=== PATIENT | female | born 1980 | race Caucasian/White ===

== ENCOUNTER 2022-04-03 07:09 | Emergency (ER) | payer BC ==
--- OUTSIDE RECORDS SUMMARY | 2022-04-03 07:12 | XMS REPORT | Continuity of Care Document ---
:1980 Author Organization [facility] t Address [address] [place] [address] Care Team Providers Name Role Phone Keith Chahal MD Primary Care Physician [phone] BIENVENIDO_CHYNA_Estevan Attending Clinician Unavailable Blanca Johnson Attending Clinician [phone] Keith Chahal MD Attending Clinician [phone] RASHEL ROMERO Attending Clinician Unavailable Amina De Souza Attending Clinician Unavailable MD RASHEL ROMERO Attending Clinician Unavailable Marlene Admitting Clinician Unavailable RSAHEL ROMERO Admitting Clinician Unavailable MD RASHEL ROMERO Admitting Clinician Unavailable Payers Payer Name Policy Type Policy Number Effective Date Expiration Date S ource [place] [id number] 2019 00:00:00 [place] 1707 [place] [id number] Problems Condition Condition Condition Status Onset Resolution Last Treating Co mments Source Name Details Category Date Date Treatment Clinician Date 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 of 00:00: Ho spita skin of skin of 00 l face face 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 00:00: Ho spita 00 l Attention Attention Disease Active Met hodi deficit deficit 3-12 st disorder disorder 00:00: Hospit a 00 l Depression Depression Disease Active M ethodi 3-22 st 00:00: Hospita 00 l Allergies, Adverse Reactions, Alerts Allergy Allergy Status Severity Reaction(s) Onset Inactive Treating Comm ents Source Name Type Date Date Clinician No Known Propensi Active Method i Drug ty to 03 st Allergie adverse 00:00: Hospita s reaction 00 l s to drug Family History Family Member Diagnosis Comments Start Date Stop Date Source Natural father [facility] Natural mother [facility] Social History Social Habit Start Date Stop Date Quantity Comments Source Alcohol intake 2021-11-11 2021-11-11 Current drinker [facility] 00:00:00 00:00:00 of alcohol Hospital (finding) Tobacco use and 2019-12-28 2019-12-28 Smokeless tobacco [facility] exposure 00:00:00 00:00:00 non-user Hospital Alcohol Comment 2019-12-28 2019-12-28 Not much. Maybe [facility]ist 00:00:00 00:00:00 once a month Hospital Sex Assigned At [birth year] F [facility] 00:[facility]00 [facility] Smoking Status Start Date Stop Date Source Never smoked tobacco [facility] Medications Ordered Filled Start Stop Current Ordering Indication Dosage Frequency Signature Comments Components Source Medication Medication Date Date Medication? Clinician (SIG) Name Name etonogestre Yes NuvaRing Me thodi l-ethinyl -[address] estradiol 13:07: -0.015 Hospit a (NUVARING) 30 mg/24 hr l 0.12-0.015 vaginal mg/24 hr vaginal ring cholecalcif Yes Take by Met hodi lola, 4-[address] vitamin D3, 13:07: Hospit a (VITAMIN 30 l D3) 5,000 unit capsule iron, Yes 45mg QD Take 45 mg Method i carbonyl, 4-[address] 45 mg 13:07: daily. 2 Hospita tablet 30 QOD alt l with 1 QOD ascorbic Yes 1000mg QD Take 1,000 M ethodi acid, 4-[address] vitamin C, 13:07: mouth Hospit a (VITAMIN C) 30 daily. l 1000 MG tablet fluticasone 2019-08 Yes 1{puff} Q.5D Inhale 1 Methodi propion-branden 0-[address] meteroL 00:00: (two) Hospita (Advair 00 times a l Diskus) day. 250-50 mcg/dose DISKUS nebulizers Yes Q.25D 1 Method i misc 3-[address] 00:00: s 4 (four) Hospita 00 times a l day as needed (wheezing) . albuterol 2018-08 Yes 2{puff} Q.25D Inhale 2 Methodi sulfate 90 0-[address] mcg/actuati 00:00: (four) Hosp latanya on aerosol 00 times a l powdr day as breath needed activated (cough, wheezing or shortness of breath). VYVANSE 50 Yes 50mg QD Take 50 mg M ethodi mg capsule 9-[address] 00:00: daily. Hospita 00 l dextroamphe Yes 1{tbl} QD Take 1 Me thodi tamine-amph 9-[address] etamine 00:00: mouth Hospita (ADDERALL) 00 every l 20 mg evening. tablet sertraline Yes Methodi (ZOLOFT) 7-08 st 100 MG 00:00: Hospita tablet 00 l Immunizations Ordered Immunization Filled Immunization Date Status Commen ts Source Name Name [employer] COVID-19 2021-03-11 Completed Methodis t AD26 VACCINATION 00:00:00 Hospital Influenza, 2020-04-02 Completed [facility] Unspecified 00:00:00 Hospital FLUBLOK QUAD PF 2019-05-16 Completed [facility] 00:00:00 Hospital FLUZONE QUAD 2019-05-16 Completed [facility] 00:[facility]:00 Hospital Tdap 2017-04-19 Completed [facility] 00:[facility]:00 [facility] Influenza (IM) 2014-06-27 Completed [facility] Preservative Free 00:00:00 Hospita l H1N1 All Forms 2009-07-01 Completed [facility] 00:00:00 [facility] H1N1 All Forms 2009-07-01 Completed [facility] 00:[facility] Hospital Vital Signs Vital Name Observation Time Observation Value Comments Source Systolic blood 2021-11-11 18:05:00 119 mm[Hg] [facility] Hospital pressure Diastolic blood 2021-11-11 18:05:00 83 mm[Hg] [facility] pressure Heart rate 2021-11-11 18:05:00 83 /min [facility] Respiratory rate 2021-11-11 18:05:00 15 /min [facility] Body height 2021-11-11 18:05:00 162.6 cm [facility] Body weight 2021-11-11 18:05:00 76.658 kg [facility] BMI 2021-11-11 18:05:00 29.01 kg/m2 [facility] Procedures Procedure Date / Time Performing Clinician Source Performed HEMOGLOBIN A1C 2021-11-11 18:30:00 [facility] LIPID [facility]EL 2021-11-11 18:30:00 Tirso [facility] URINALYSIS, COMPLETE, 2021-11-11 18:30:00 Tirso [facility] WITH REFLEX TO CULTURE SARS-COV-2 ANTIBODY IGG, 2021-11-11 18:30:00 Tirso [facility] SPIKE, SEMI-QUANTITATIVE THYROID STIMULATING 2021-11-11 18:30:00 [facility] HORMONE VITAMIN B12 LEVEL 2021-11-11 18:30:00 [facility] D 25 HYDROXY 2021-11-11 18:30:00 Tirso [facility] LEVEL CBC WITH PLATELET AND 2021-11-11 18:30:00 [facility] DIFFERENTIAL COMPREHENSIVE METABOLIC 2021-11-11 18:30:00 Tirso [facility] PANEL Plan of Care Planned Activity Planned Date Details Comments Source Future Scheduled 2022-03-31 HEPATITIS B [facility] ospital Test 07:13:38 VACCINES (1 of 3 - 3-dose series) [code = HEPATITIS B VACCINES (1 of 3 - 3-dose series)] Future Scheduled 2022-03-31 Screening for [facility] Test 07:13:38 malignant neoplasm of cervix (procedure) [code = 042128603] Future Scheduled 2022-03-31 COVID-19 VACCINE (2 [facility] Test 07:13:38 - Booster for Julia series) [code = COVID-19 VACCINE (2 - Booster for Julia series)] Future Scheduled 2022-03-31 INFLUENZA VACCINE [facility] Test 07:13:38 [code = INFLUENZA VACCINE] Encounters Start End Encounter Admission Attending Care Care Encounter Source Date/Time Date/Time Type Type Clinicians Facility Department ID 2022-03-16 2022-03-16 Outpatient GC_SWOBGYN_ PRIV PRIV [id number] [facility] 00:00:00 00:00:00 Estevan [id number] [facility] 2022-03-16 2022-03-16 Outpatient Johnson, PRIV PRIV [id number] 00:00:00 00:00:00 Blanca [id number] 2022-03-13 2022-03-13 Outpatient GC_SWOBGYN_ PRIV PRIV [id number] [facility] 00:00:00 00:00:00 Estevan [id number] [facility] 2021-11-11 2021-11-11 Office Tirso 1.2.840.1 [id number] Methodi 13:00:00 13:37:55 Visit Keith [id number] P. 3.430.2.7 Hospit a .3.093486 l .8 2021-11-11 2021-11-11 Outpatient [facility] [id number] 587 [place] 00:00:00 00:00:[address] 2021-11-11 2021-11-11 Outpatient [facility] [id number] 164 [place] 00:00:00 00:00:00 RASHEL [address] 2021-11-11 2021-11-11 Travel 1.2.840.1 [id number] Methodi 00:00:00 00:00:[address] 3.430.2.7 0.2.7.3.698 Ho spita .3.834331 084.8 l .8 2021-10-30 2021-10-30 Travel 1.2.840.1 1.2.759.580 [id number] Methodi 00:00:00 00:00:[address] 3.430.2.7 0.2.7.3.698 Ho spita .3.085977 084.8 l .8 2021-05-27 2021-05-27 Outpatient KLEBUC, [facility] [id number] 787 [place] 00:00:00 00:00:00 RASHEL [address] 2021-05-16 2021-05-16 Travel 1.2.840.1 [id number] [id number] [facility]i 00:00:00 00:00:[address] 3.430.2.7 0.2.7.3.698 Ho spita .3.816939 084.8 l .8 2021-03-13 2021-03-13 Outpatient Nolvia Aminahamlet CLEMENTE [id number] [facility] 09:44:00 09:44:00 st LIANG 2021-02-18 2021-02-18 Outpatient KLEBUC, [facility] [id number] [place] 00:00:00 00:00:00 RASHEL [address] 2021-02-14 2021-02-14 [facility] [id number] 548 [place] 00:00:00 00:00:00 RASHEL [address] 2021-02-14 2021-02-14 [facility] [place] [id number] 579 [place] 00:00:00 00:00:00 RASHEL [address] 2021-02-14 2021-02-14 Outpatient KLEBUC, [facility] [id number] 596 [place] 00:00:00 00:00:00 RASHEL [address] 2020-11-29 2020-11-29 Outpatient KLEBU, [facility] [id number] 471 [place] 00:00:00 00:00:00 RASHEL [address] 2020-08-13 2020-08-13 Outpatient [facility] [id number] 323 [place] 00:00:00 00:00:[address] 2020-05-24 2020-05-24 Outpatient KLEBUC, [facility] [id number] 765 [place] 00:00:00 00:00:00 RASHEL [address] 2020-02-14 2020-02-14 Outpatient De SouzaAmina [id number] 09:46:00 09:46:00 st OBGYN 2020-02-13 2020-02-13 Outpatient KLEBUC, [facility] [id number] 265 [place] 00:00:00 00:00:00 RASHEL [address] 2020-02-07 2020-02-07 Outpatient ROBBEN, [facility] [id number] 168 [place] 00:00:00 00:00:00 CHRISTOPHER 101 Me thodi 2020-01-08 2020-01-08 Outpatient KLEBUC, [facility] [id number] 553 [place] 00:00:00 00:00:00 RASHEL [address] 2020-01-03 2020-01-03 Outpatient KLEBUC, [place] [id number] 515 [place] 00:00:00 00:00:00 RASHEL [address] 2019-12-29 2019-12-29 Outpatient KLEBUC, [facility] [id number] 537 [place] 00:00:00 00:00:00 RASHEL [address] 2019-12-29 2019-12-29 Outpatient ROBBEN, [facility] [id number] 237 [place] 00:00:00 00:00:00 CHRISTOPHER 444 Me thodi 2019-12-29 2019-12-29 Outpatient KLEBUC, [facility] [id number] 785 [place] 00:00:00 00:00:00 RASHEL [address] 2019-12-05 2019-12-05 Outpatient KLEBUC, [facility] [id number] 907 [place] 00:00:00 00:00:00 RASHEL [address] 2019-11-02 2019-11-02 Outpatient De SouzaAmina [id number] [facility] 09:23:00 09:23:00 st OBGYN 2019-07-17 2019-07-17 Outpatient ROBBEN, [facility] [id number] 179 [place] 00:00:00 00:00:00 CHRISTOPHER 447 Me thodi 2019-07-17 2019-07-17 Outpatient ROBBEN, [facility] [id number] 096 [place] 00:00:00 00:00:00 ÁNGELVICKIE 670 Me thodi 2018-11-03 2018-11-03 Outpatient Amina De Souza CHYNA [id number] [facility] 10:13:00 10:13:00 CHANTALLILLYMyranda Results Test Description Test Time Test Comments Results Result Comments Source Comprehensive metabolic panel 2021-11-13 09:18:00 Test Item Value Reference Range Interpretation Comme nts Glucose (test code = 89 mg/dL 65-139 Non-fa sting reference 2345-7) interval BUN (test code = 3094-0) 17 mg/dL 7-25 Creatinine (test code = 0.98 mg/dL 0.5-1.1 2160-0) EGFR Non-Afr. Guyanese See_Comment [Aut omated message] (test code = 2775) The [employer] which generated this result transmitted ref erence range: > OR = 6 0 mL/min/1.73m2. The reference range was not used to int erpret this result as normal/abnormal . EGFR See_Comment [Auto mated message] (test code = 2774) The [employer] which generated this result transmitted ref erence range: > OR = 6 0 mL/min/1.73m2. The reference range was not used to int erpret this result as normal/abnormal . BUN/creatinine ratio (test NOT APPLICABLE See_Comment [Automated message] code = 3097-3) The system [employer] ich generated this result transmitted ref erence range: 6 - 22 ( calc). The reference r sammi was not used to interpret this result as normal/abnor mal. Sodium (test code = 137 mmol/L 590-231 4102-2) Potassium (test code = 4.1 mmol/L 3.5-5.3 2823-3) Chloride (test code = 99 mmol/L 98-110 2075-0) CO2 (test code = 2027-9) 29 mmol/L 20-32 Calcium (test code = 10.5 mg/dL 8.6-10.2 H 75943-2) Protein (test code = 7.2 g/dL 6.1-8.1 2885-2) Albumin, S (test code = 4.7 g/dL 3.6-5.1 1751-7) Globulin, total (test code See_Comment [Automated message] = 11639-3) The system whic h generated this result transmitted ref erence range: 1.9 - 3. 7 g/dL (calc). The ref erence range was not u sed to interpret this result as normal/abnor mal. Albumin/globulin ratio See_Comment [Aut omated message] (test code = 1759-0) The sys tem which generated this result transmitted ref erence range: 1.0 - 2. 5 (calc). The ref erence range was not u sed to interpret this result as normal/abnor mal. Total bilirubin (test code 0.4 mg/dL 0.2-1.2 = 1974-) Alkaline phosphatase (test 55 U/L 31-125 code = 6768-6) AST (test code = 1920-8) 14 U/L 10-30 ALT (test code = 1742-6) 9 U/L 6-29 RINA (test code = RINA) FASTING:NO FASTING: NO RAC (test code = RAC) Performing Organization Information: Site ID: RGA [facility]: [facility] Address: [address] [place] [phone] Director: David Owens Lab Interpretation (test Abnormal code = 21500-0) [facility] [id number] 09:18:00 Test Item Value Reference Range Interpretation Comments Cholesterol, total 215 mg/dL See_Comment H [Automat ed (test code = 2093-3) message ] The system which generated this result transmitted reference range : <=200. The reference range was not used to interpret this result as normal/abnormal . HDL cholesterol 74 mg/dL See_Comment [Automated (test code = 2085-9) message ] The system which generated this result transmitted reference range : > OR = 50. The reference range was not used to interpret this result as normal/abnormal . Triglycerides (test 97 mg/dL See_Comment [Automa rojas code = 2571-8) message] The system which generated this result transmitted reference range : <=150. The reference range was not used to interpret this result as normal/abnormal . LDL cholesterol mg/dL (calc) H Reference ra nge: calculated (test <100 Desira ble code = 75233-1) range <100 m g/dL for primary prevention; <70 mg/dL for patients with C HD or diabetic patients with > or = 2 CHD risk factors. LDL-C is now calculated using the Adelia calculation, which is a validated novel method providin g better accuracy than the Friedewald equation in the estimation of LDL-C. Donta Fernandez S et al. VICTOR M. 2013;310(19): 1581-0481 (http://educati on .CodeStreet .com/faq/PGG463 ) Cholesterol/HDL See_Comment [Automated ratio (test code = message] The 9830-1) system which generated this result transmitted reference range : <5.0 (calc). Th e reference range was not used to interpret this result as normal/abnormal . Non-HDL cholesterol See_Comment H For cassie ents with (test code = diabetes plus 1 96069-4) major ASCVD ris k factor, treatin g to a non-HDL-C goal of <100 mg/dL (LDL-C of <70 mg/dL) is considered a therapeutic option. [Automated message] The system which generated this result transmitted reference range : <130 mg/dL (calc). The reference range was not used to interpret this result as normal/abnormal . RINA (test code = FASTING:NO RINA) FASTING: NO RAC (test code = Performing RAC) Organization Information: Site ID: RGA Name: [facility] Address: [address] [place] [phone] Director: David Owens Lab Interpretation Abnormal (test code = 45907-6) [facility] [id number] 09:18:00 Test Item Value Reference Interpretation Comments Range Vitamin B12 292 pg/mL 200-1100 Please Note: A lthough the (test code = reference range for 2132-04) [id number] is 2 00-1100 pg/mL, it has b een reported that between5 a nd 10% of patients with v alues between 200 and 400pg/m L may experience neur opsychiatric and hematologic abnormalities due to occult B 12 deficiency; les s than 1%of patients with v alues above 400 pg/mL will have symptoms. RINA (test FASTING:NO code = RINA) FASTING: NO RAC (test Performing code = RAC) Organization Information: Site ID: ANGY Name: [facility] Address: [address] [place] [phone] Director: David Owens [facility] [id number] 09:18:00 Test Item Value Reference Range Interpretation Comments Hemoglobin A1C See_Comment For the purpo se of (test code = screening for t he 4548-4) presence ofdiab etes: <5.7% Consisten t with the absence of diabetes5.7-6.4 % Consistent with increased risk for diabetes (prediabetes)> or =6.5% Consisten t with diabetes This a ssay result is consi stent with a decrease d riskof diabetes . Currently, no consensus exist s regarding use ofhemoglobin A1 c for diagnosis of di abetes in children. According to [place] Diabetes Associ ation (ADA)guidelines , hemoglobin A1c <7.0% represents optimalcontrol in non- di abetic patients. Differentmetric s may apply to specif ic patient populat ions. Standards of Ne dical Care in Diabetes(ADA). [Automated mess age] The system [employer] generated this result transmitted ref erence range: <5.7 % o f total Hgb. The reference range was not used to int erpret this result as normal/abnormal . RINA (test code = FASTING:NO RINA) FASTING: NO RAC (test code = Performing RAC) Organization Information: Site ID: RGA [facility]: [facility] Address: [address] [place] [phone] Director: [facility] LakeThyroid stimulating [id number] 09:18:00 Test Item Value Reference Range Interpretation Comments TSH (test code mIU/L Reference Ra nge > = 3016-3) or = 20 Years 0.40-4.50 Range s First trimester 0.26-2.66 Secon d trimester 0.55-2.73 Third trimester 0.43-2.91 RINA (test code FASTING:NO FASTING: NO = RINA) RAC (test code Performing = RAC) Organization Information: Site ID: A [facility] Address: [address] [place] [phone] Director: [facility] with platelet and [id number] 09:18:00 Test Item Value Reference Range Interpretation Comments WBC (test code = See_Comment [Automated 6690-2) message] The system which generated this result transmitted reference range : 3.8 - 10.8 Thousand/uL. Th e reference range was not used to interpret this result as normal/abnormal . RBC (test code = See_Comment [Automated 789-8) message] The system which generated this result transmitted reference range : 3.80 - 5.10 Million/uL. The reference range was not used to interpret this result as normal/abnormal . HGB (test code = 14.6 g/dL 11.7-15.5 718-7) HCT (test code = 43.2 % 35-45 4544-3) MCV (test code = 87.6 fL 80-100 787-2) MCH (test code = 29.6 pg 27-33 785-6) MCHC (test code = 33.8 g/dL 32-36 786-4) RDW (test code = 12.5 % 11-15 788-0) Platelet count See_Comment [Automated (test code = message] The 777-3) system which generated this result transmitted reference range : 140 - 400 Thousand/uL. Th e reference range was not used to interpret this result as normal/abnormal . MPV (test code = 9.0 fL 7.5-12.5 776-5) Neutrophils, See_Comment [Automated absolute (test message] The code = 751-8) system which generated this result transmitted reference range : 1,500 - 7,800 cells/uL. The reference range was not used to interpret this result as normal/abnormal . Lymphocytes, See_Comment [Automated absolute (test message] The code = 731-0) system which generated this result transmitted reference range : 850 - 3,900 cells/uL. The reference range was not used to interpret this result as normal/abnormal . Monocytes, See_Comment [Automated absolute (test message] The code = 742-7) system which generated this result transmitted reference range : 200 - 950 cells/uL. The reference range was not used to interpret this result as normal/abnormal . Eosinophils, See_Comment [Automated absolute (test message] The code = 711-2) system which generated this result transmitted reference range : 15 - 500 cells/uL. The reference range was not used to interpret this result as normal/abnormal . Basophils, See_Comment [Automated absolute (test message] The code = 704-7) system which generated this result transmitted reference range : 0 - 200 cells/u L. The reference range was not used to interpr et this result as normal/abnormal . Neutrophils (test 57.2 % code = 770-8) Lymphocytes (test 32.4 % code = 736-9) Monocytes (test 7.5 % code = 5905-5) Eosinophils (test 2.3 % code = 713-8) Basophils + RC 0.6 % (test code = 706-2) RINA (test code = FASTING:NO FASTING: RINA) NO RAC (test code = Performing RAC) Organization Information: Site ID: RGA [facility] Address: [address] [place] [phone] Director: Elvaston Madhavi [facility] D 25 hydroxy [id number] 09:18:00 Test Item Value Reference Range Interpretation Comments Vitamin D, 63 ng/mL 30-100 Vitamin D Statu s 25-hydroxy (test 25-OH Vitam in D: code = 1989-3) Deficiency: < 20 ng/mLInsufficie ncy : 20 - 29 ng/mLOptimal: > or = 30 ng/mL For 25-OH Vitamin D testing on patients on D2-supplementat ion and patients fo r whom quantitati on of D2 and D3 fractions is required, the QuestAssureD(TM )25 -OH VIT D, (D2,D3), LC/MS/ MS is recommended: order code 9288 8 (patients >2yrs).See Note 1 Note 1 For additional information, please refer to http://educatio n.Q uestDiagnostics .co m/faq/TRF132 (T his link is being provided for informational/e jono ational purpose s only.) RINA (test code = FASTING:NO FASTING: RINA) NO RAC (test code = Performing RAC) Organization Information: Site ID: RGA [facility] Address: [address] [place] [phone] Director: David Madhavi [facility] HospitalUR[facility]ALYSIS, COMPLETE, WITH REFLEX TO [id number] 09:18:00 Test Item Value Reference Interpretation Comments Range Color, UA (test code YELLOW YELLOW = 5778-6) Appearance (test CLEAR CLEAR code = 5767-9) Specific gravity, 1.001-1.035 urine (test code = 5811-5) pH, urine (test code 5-8 = 5803-2) Glucose, urine (test NEGATIVE NEGATIVE code = 24564-0) Bilirubin, UA (test NEGATIVE NEGATIVE code = 5770-3) Ketones, UA (test NEGATIVE NEGATIVE code = 2514-8) Occult blood, urine NEGATIVE NEGATIVE (test code = 5794-3) Protein, UA (test NEGATIVE NEGATIVE code = 58882-3) Nitrite, UA (test NEGATIVE NEGATIVE code = 5802-4) Leukocyte esterase, TRACE NEGATIVE A UA (test code = 5799-2) WBC, UA (test code = 0-5 See_Comment [Autom ated 5821-4) message] The sy stem which generated this result transmitted reference range : < OR = 5 /HPF. Th e reference range was not used to interpret this result as normal/abnormal . RBC, UA (test code = NONE SEEN See_Comment [Autom ated 18989-9) message] The sy stem which generated this result transmitted reference range : < OR = 2 /HPF. Th e reference range was not used to interpret this result as normal/abnormal . Squamous epithelial 6-10 See_Comment A [Automa rojas cells, UA (test code message ] The system = 84357-5) which generated this result transmitted reference range : < OR = 5 /HPF. Th e reference range was not used to interpret this result as normal/abnormal . Bacteria, UA (test NONE SEEN NONE SEEN /HPF code = 5769-5) Hyaline casts, UA NONE SEEN NONE SEEN /LPF (test code = 5796-8) Urine culture (test SEE NOTE CULTURE , URINE, code = 630-4) ROUTINE Micro Number: [id number] Test Status: Fi nal Specimen Source : Urine Specimen Quality: [place] te Result: Mixed genital chante isolated. These superficial bacteria are no t indicative of a urinary tract infection. No further organis m identification is warranted on th is specimen. If clinically indicated, recollect clean-catch, mid-stream urin e and transfer immediately to Urine Culture Transport Tube. RINA (test code = FASTING:NO RINA) FASTING: NO RAC (test code = Performing RAC) Organization Information: Site ID: [id number] Name: [facility] Address: [address] [place] [id number] Director: David Owens [facility] Interpretation Abnormal (test code = 11782-6) [facility] Grant, [id number] 09:18:00 Test Item Value Reference Range Interpretation Comments SARS COV-2 <1.00 See_Comment This test is i ntended to AB IGG help identify i ndividuals (test code withantibodies to = 46958-0) SARS-CoV-2 (COV ID-19). The results of thissemi-quanti tative test should not be i nterpreted as anindication or degree of immunity or protection fromreinfection . A test result that is 1.00 or more (Positive) meansantibodies to SARS-CoV-2 were detected in the bloodsam ple by the test. This coul d mean that the individualm ay have an immune response to a recent or prior infection with SARS-CoV-2 . Positive results may occ urafter COVID-19 vaccin ation, but the clinical significanceof a positive antibody result for individuals rosalinda t havereceived a COVID-19 vaccine is unkn own, and the performance of the test has not be en established inC OVID-19 vaccinees. Fals e positive results for the test may occur due to cross-reactivit y from pre-existingant ibodies or other possible causes. A test result rosalinda t is less than 1.00 (Nega tive) meansthat antib odies were not detected in the blood sample bythe te st. This could mean that the individual has not been previously infe cted with SARS-CoV-2. The clinicalsignifi cance of a negative antibo dy result for individuals that have received a COVI D-19 vaccine is unkn own.The performance of the test has not been es tablished in COVID-19 vac cinees. False negative results for thetest may occ ur if the individual's an tibodies havenot reached a sufficient leve l for the test to be able todetect them. Antibodie s can take up to two to th ree weeks(sometimes longer) to develop after s omeone is infected.How lo ng antibodies to S ARS-CoV-2 last after infe ction isnot known. This kathrine t should not be used to diagnose an activeSARS-CoV- 2 infection. If a n active infection is suspected,dire t molecular or antigen test ing for SARS-CoV-2 isre commended. Please review ruben hein "Fact Sheets" availab le for healthcareprovi ders and patients using the following websi kathrine: http://patient. questdiagno stics.com/Atell ica-HCPhttp ://patient.ques PonoMusic/Atellica- Patients Healthcare Prov iders: For additional info rmation pleaserefer to:http://educa tion.[employer]/ faq/MNQ607( This link is be ing provided for informational/e ducationalp urposes only.) This test has been author ized by the FDA under an Em ergency Use Authorization ( EUA) for use by authoriz [employer] laboratories. T melvina FDA authorized nick pena is available on [facility] website:www.Jymob/Covid19. [Automated message] The sy stem which generated this result transmitted ref erence range: <1.00 in dex. The reference range was not used to interpr et this result as daam l/abnormal. RINA (test FASTING:NO code = RINA) FASTING: NO RAC (test Performing code = RAC) Organization Information: Site ID: [id number] Name: [facility] Address: [address] [place] [id number] Director: David Owens [facility] coronavirus 2 RNA [Presence] in Respiratory specimen by [place] with probe [id number] 18:40:34 Test Item Value Reference Range Interpretation Comments SARS coronavirus 2 RNA Not detected Not-Detected [Presence] in Respiratory specimen by [place] with probe detection (test code = 88439-9)
[2022-04-03 07:37] LABS: Urine Blood 3+ (Negative); Urine Glucose Negative (Negative); Urine Protein 2+ (Negative); Urine Specific Gravity >=1.030 (1.005-1.030); Urine pH 5.5 (5.0-7.0)
[2022-04-03] MEDS ORDERED: MORPHINE 4 MG/ML SYR ONE ×3 (08:06→11:59)
[2022-04-03] MEDS ORDERED: ONDANSETRON 4 MG/2 ML VIAL ONE (08:06)
[2022-04-03 08:07] LABS: Absolute Lymphocytes (CBC) 1.9 K/uL (0.7-4.9); Hematocrit 39.3 % (36.0-45.0); Lymphocytes % 21.7 % (15.3-44.8); MCV 85.5 fL (80-100); MPV 6.1 fL (7.6-11.3); RBC Red Blood Cell Count 4.59 M/uL (3.86-4.86)
[2022-04-03 08:21] LABS: Albumin 3.7 g/dL (3.4-5.0); Bilirubin Total 0.3 mg/dL (0.2-1.0); Potassium 4.1 mmol/L (3.5-5.1)
[2022-04-03 08:28] LABS: Urine Bacteria >50 /HPF (<20); Urine RBC >50 /HPF (None Seen)
--- NOTE | 2022-04-03 08:56 | RAD REPORT ---
EXAM DESCRIPTION: CT - Abdomen Pelvis W Contrast - 04/03/2022 8:41 am CLINICAL HISTORY: Abdominal pain COMPARISON: none. TECHNIQUE: Computed axial tomography of the abdomen pelvis was obtained. 100 cc Isovue-300 was admin istered intravenously. Oral contrast was not requested which limits evaluation of bowel and appendix All CT scans are performed using dose optimization technique as appropriate and may include automated exposure control or mA/KV adjustment according to patient size. FINDINGS: A 3.8 centimeter intermediate density structure is present within the medial segment left lobe of the liver. The spleen, pancreas, adrenals and right kidney are unremarkable. Moderate left hydronephrosis is present. Within the proximal left ureter is a 6 millimeter calculus. Several left renal calculi are seen. Moderate amount of stool within the colon. There is no evidence of diverticulitis. IMPRESSION: A 6 millimeter calculus proximal left ureter resulting in moderate left hydronephrosis. 3.8 centimeter intermediate density structure within the liver probably mild fatty infiltration. Hepa tic ultrasound in 3 months is recommended for re-evaluation
[2022-04-03] MEDS ORDERED: CIPROFLOXACIN 400mg IV 400 MG/200 ML BAG IV ONE (09:12)
[2022-04-03] MEDS ORDERED: MAGNESIUM SULFATE 1 gm IVPB 1 GM/100 ML BAG IV ONE (09:15)
[2022-04-03] MEDS ORDERED: TAMSULOSIN 0.4 MG SR CAP ONE (09:15)
[2022-04-03] MEDS ORDERED: KETOROLAC 30 MG/ML INJ ONE (09:15)
--- NOTE | 2022-04-03 12:41 | ER ---
Nurse's Notes [facility] Name: Leslie Ang Age: 41 yrs Sex: Female : 1980 Arrival Date: 04/03/2022 Time: 07:10 Bed 13 Private MD: Diagnosis: Calculus of ureter;UTI/ Urinary tract infection, site not specified Presentation: 04/03 07:17 Chief complaint: Patient states: LLQ pain that began yesterday, worse this morning and ss radiates towards L flank area. +nausea. Coronavirus screen: Client denies travel out of the [place] in the last 14 days. Ebola Screen: Patient denies exposure to infectious person. Patient denies travel to an Ebola-affected area in the 21 days before illness onset. Initial Sepsis Screen: Does the patient meet any 2 criteria? No. Patient's initial sepsis screen is negative. Does the patient have a suspected source of infection? No. Patient's initial sepsis screen is negative. Risk Assessment: Do you want to hurt yourself or someone else? Patient reports no desire to harm self or others. Onset of symptoms was April 02, 2022. 07:17 Method Of Arrival: Ambulatory ss 07:17 Acuity: STIVEN 3 ss Triage Assessment: 08:00 General: Appears uncomfortable, Behavior is crying. 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 - Social history:: Smoking status: Patient denies any tobacco usage or history of. - Family history:: not pertinent. - Hospitalizations: : No recent hospitalization is reported. Screenin:33 Abuse screen: Denies threats or abuse. Denies injuries from another. Nutritional ss screening: No deficits noted. Tuberculosis screening: Never had TB. 08:00 Fall Risk None identified. jg9 Assessment: 08:00 Reassessment: No changes from previously documented assessment. Patient and/or family jg9 updated on plan of care and expected duration. Pain level reassessed. Patient is alert, oriented x 3, equal unlabored respirations, skin warm/dry/pink. Pain: Complains of pain in left lower quadrant. GI: Bowel sounds present X 4 quads. Abd is soft and non tender in right upper quadrant, left upper quadrant and right lower quadrant Abdomen is tender to palpation in left lower quadrant. 09:30 Reassessment: Patient states feeling better. Patient states symptoms have improved. jg9 10:00 Reassessment: Patient and/or family updated on plan of care and expected duration. Pain jg9 level reassessed. Patient is alert, oriented x 3, equal unlabored respirations, skin warm/dry/pink. Patient states feeling better. Patient states symptoms have improved. 11:00 Reassessment: No changes from previously documented assessment. Patient and/or family jg9 updated on plan of care and expected duration. Pain level reassessed. Patient is alert, oriented x 3, equal unlabored respirations, skin warm/dry/pink. 12:00 Reassessment: Patient and/or family updated on plan of care and expected duration. Pain jg9 level reassessed. Patient is alert, oriented x 3, equal unlabored respirations, skin warm/dry/pink. Vital Signs: 07:17 BP 111 / 84; Pulse 75; Resp 16; Pulse Ox 100% on R/A; Height 5 ft. 4 in. (162.56 cm); ss 08:00 BP 126 / 89; Pulse 79; Resp 15 S; Pulse Ox 100% on R/A; Pain 9/10; jg9 09:30 BP 111 / 78; Pulse 67; Resp 12 S; Pulse Ox 100% on R/A; Pain 2/10; jg9 10:15 BP 119 / 87; Pulse 74; Resp 14 S; Pulse Ox 100% on R/A; Pain 2/10; jg9 11:00 BP 126 / 76; Pulse 73; Resp 15 S; Pulse Ox 100% on R/A; Pain 2/10; jg9 11:45 BP 109 / 74; Pulse 77; Resp 16 S; Pulse Ox 100% on R/A; Pain 3/10; jg9 12:45 BP 111 / 78; Pulse 74; Resp 12 S; Pulse Ox 95% ; Pain 2/10; jg9 ED Course: 07:10 Patient arrived in ED. am2 07:10 Jonatan Jackson MD is Attending Physician. rn 07:18 Triage completed. ss 07:18 Arm band placed on right wrist. ss 07:55 Anuradha Hughes, DAV is Primary Nurse. jg9 07:55 Inserted saline lock: 20 gauge in right antecubital area, using aseptic technique. jg9 Blood collected. 08:22 Patient has correct armband on for positive identification. Bed in low position. Call jg9 light in reach. Side rails up X 1. 08:43 CT Abd/Pelvis - IV Contrast Only In Process Unspecified. EDMS 12:40 Irwin Phillips MD is Referral Physician. rn 12:53 No provider procedures requiring assistance completed. jg9 12:54 IV discontinued. jg9 Administered Medications: 08:05 Drug: Zofran (Ondansetron) 4 mg Route: IVP; Site: right antecubital; jg9 08:29 Follow up: Response: No adverse reaction; Vomiting decreased jg9 08:05 Drug: morphine 4 mg {Note: RASS-0, 9/10 LLQ pain.} Route: IVP; Infused Over: 4 mins; jg9 Site: right antecubital; 08:29 Follow up: Response: Pain is unchanged, physician notified jg9 08:37 Drug: morphine 4 mg Route: IVP; Infused Over: 4 mins; Site: right antecubital; jg9 09:00 Follow up: Response: No adverse reaction; Pain is unchanged, physician notified jg9 09:00 Drug: Cipro (ciprofloxacin) 400 mg Volume: 200 ml; Route: IVPB; Infused Over: 60 mins; jg9 Site: right antecubital; 10:16 Follow up: IV Status: Completed infusion; IV Intake: 200ml jg9 09:10 Drug: Ketorolac 30 mg Route: IVP; Site: right antecubital; jg9 09:42 Follow up: Response: No adverse reaction; Marked relief of symptoms; Pain is decreased; jg9 RASS: Drowsy (-1) 09:15 Drug: Flomax (tamsulosin) 0.4 mg Route: PO; jg9 09:41 Follow up: Response: No adverse reaction; Pain is decreased jg9 10:16 Drug: Magnesium Sulfate 1 grams Route: IVPB; Infused Over: 1 hrs; Site: right jg9 antecubital; 11:11 Follow up: IV Status: Completed infusion; IV Intake: 100ml jg9 11:52 Drug: morphine 4 mg {Note: RASS-0; 3/10 LLQ/back pain.} Route: IVP; Infused Over: 4 jg9 mins; Site: right antecubital; 12:54 Follow up: Response: No adverse reaction; Pain is decreased jg9 Medication: 12:55 VIS not applicable for this client. jg9 Intake: 10:16 IV: 200ml; Total: 200ml. jg9 11:11 IV: 100ml; Total: 300ml. jg9 Outcome: 12:41 Discharge ordered by . rn 12:53 Discharged to home ambulatory. jg9 12:53 Condition: improved 12:53 Discharge instructions given to patient, Instructed on discharge instructions, follow up and referral plans. Demonstrated understanding of instructions, follow-up care, Prescriptions given X 5 12:55 Patient left the ED. jg9 Signatures: Dispatcher [employer] EDMS Jonatan Jackson MD MD rn Smirch, Shelby, RN RN ss Moreno, Amanda am2 Gilmore, Jennifer, RN RN jg9
--- NOTE | 2022-04-03 12:41 | EDPHYS ---
Physician Documentation [facility] Name: Leslie Ang Age: 41 yrs Sex: Female : 1980 Arrival Date: 04/03/2022 Time: 07:10 Bed 13 Private MD: ED Physician Jonatan Jackson HPI: 04/03 07:51 This 41 yrs old Female presents to ER via Ambulatory with complaints of Abdominal Pain rn - LLQ, Back Pain. 07:52 The patient presents with abdominal pain in the left lower quadrant, left flank. Onset: rn The symptoms/episode began/occurred yesterday. The symptoms do not radiate. Associated signs and symptoms: Pertinent positives: nausea and vomiting, Pertinent negatives: blood in stools, chest pain, constipation, diarrhea, dysuria, fever, hematuria. The symptoms are described as crampy, intermittent, sharp. Modifying factors: The symptoms are alleviated by nothing, the symptoms are aggravated by touching the area. Severity of pain: At its worst the pain was moderate in the emergency department the pain is unchanged. The patient has not experienced similar symptoms in the past. The patient has not recently seen a physician. 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 - Social history:: Smoking status: Patient denies any tobacco usage or history of. - Family history:: not pertinent. - Hospitalizations: : No recent hospitalization is reported. ROS: 07:52 Constitutional: Negative for fever, chills, and weight loss, Eyes: Negative for injury, rn pain, redness, and discharge, Neck: Negative for injury, pain, and swelling, Cardiovascular: Negative for chest pain, palpitations, and edema, Respiratory: Negative for shortness of breath, cough, wheezing, and pleuritic chest pain, Abdomen/GI: + LLQ abd pain, + nausea/vomiting, neg for diarrhea Back: Negative for injury and pain, : Negative for injury, bleeding, discharge, and swelling, MS/Extremity: Negative for injury and deformity, Skin: Negative for injury, rash, and discoloration, Neuro: Negative for headache, weakness, numbness, tingling, and seizure. Exam: 07:52 Constitutional: This is a well developed, well nourished patient who is awake, alert, rn appears uncomfortable Head/Face: Normocephalic, atraumatic. Cardiovascular: Regular rate and rhythm. No pulse deficits. Respiratory: No increased work of breathing, no retractions or nasal flaring. Abdomen/GI: soft, + mild left sided tenderness, no rebound, no masses Skin: Warm, dry MS/ Extremity: Pulses equal, no cyanosis. Neuro: Awake and alert, GCS 15 Vital Signs: 07:17 BP 111 / 84; Pulse 75; Resp 16; Pulse Ox 100% on R/A; Height 5 ft. 4 in. (162.56 cm); ss 08:00 BP 126 / 89; Pulse 79; Resp 15 S; Pulse Ox 100% on R/A; Pain 9/10; jg9 09:30 BP 111 / 78; Pulse 67; Resp 12 S; Pulse Ox 100% on R/A; Pain 2/10; jg9 10:15 BP 119 / 87; Pulse 74; Resp 14 S; Pulse Ox 100% on R/A; Pain 2/10; jg9 11:00 BP 126 / 76; Pulse 73; Resp 15 S; Pulse Ox 100% on R/A; Pain 2/10; jg9 11:45 BP 109 / 74; Pulse 77; Resp 16 S; Pulse Ox 100% on R/A; Pain 3/10; jg9 12:45 BP 111 / 78; Pulse 74; Resp 12 S; Pulse Ox 95% ; Pain 2/10; jg9 MDM: 07:10 Patient medically screened. rn 12:38 Differential diagnosis: Ectopic , non-specific abd pain, Ureterolithiasis, rn urinary tract infection. Data reviewed: vital signs, nurses notes, lab test result(s), radiologic studies, CT scan, and as a result, I will discharge patient. Counseling: I had a detailed discussion with the patient and/or guardian regarding: the historical points, exam findings, and any diagnostic results supporting the discharge/admit diagnosis, lab results, radiology results, the need for outpatient follow up, to return to the emergency department if symptoms worsen or persist or if there are any questions or concerns that arise at home. Response to treatment: the patient's symptoms have markedly improved after treatment, and as a result, I will discharge patient. Special discussion: I discussed with the patient/guardian in detail that at this point there is no indication for admission to the hospital. It is understood, however, that if the symptoms persist or worsen the patient needs to return immediately for re-evaluation. Based on the history and exam findings, there is no indication for further emergent testing or inpatient evaluation. I discussed with the patient/guardian the need to see the urologist for further evaluation of the symptoms. ED course: 6mm proximal stone on CT, feels migrating around to groin now, minimal to no pain, will dc home with return precautions and urology f/u. . 04/03 07:22 Order name: CBC with Diff; Complete Time: 08:15 04/03 07:22 Order name: CMP; Complete Time: 08:23 04/03 07:22 Order name: Lipase; Complete Time: 08:23 04/03 07:22 Order name: Urine Microscopic Only; Complete Time: 08:51 04/03 07:37 Order name: Urine Dipstick-Ancillary; Complete Time: 08:08 [facility] 04/03 07:41 Order name: Urine --Ancillary (enter results) 04/03 07:22 Order name: CT Abd/Pelvis - IV Contrast Only; Complete Time: 09:05 04/03 08:33 Order name: Urine Culture [facility] 04/03 07:22 Order name: IV Saline Lock; Complete Time: 07:55 04/03 07:22 Order name: Labs collected and sent; Complete Time: 07:55 rn 04/03 07:22 Order name: Urine Dipstick-Ancillary (obtain specimen); Complete Time: 07:41 rn 04/03 07:22 Order name: Urine Test (obtain specimen); Complete Time: 07:41 rn Administered Medications: 08:05 Drug: Zofran (Ondansetron) 4 mg Route: IVP; Site: right antecubital; jg9 08:29 Follow up: Response: No adverse reaction; Vomiting decreased jg9 08:05 Drug: morphine 4 mg {Note: RASS-0, 9/10 LLQ pain.} Route: IVP; Infused Over: 4 mins; jg9 Site: right antecubital; 08:29 Follow up: Response: Pain is unchanged, physician notified jg9 08:37 Drug: morphine 4 mg Route: IVP; Infused Over: 4 mins; Site: right antecubital; jg9 09:00 Follow up: Response: No adverse reaction; Pain is unchanged, physician notified jg9 09:00 Drug: Cipro (ciprofloxacin) 400 mg Volume: 200 ml; Route: IVPB; Infused Over: 60 mins; jg9 Site: right antecubital; 10:16 Follow up: IV Status: Completed infusion; IV Intake: 200ml jg9 09:10 Drug: Ketorolac 30 mg Route: IVP; Site: right antecubital; j9 09:42 Follow up: Response: No adverse reaction; Marked relief of symptoms; Pain is decreased; jg9 RASS: Drowsy (-1) 09:15 Drug: Flomax (tamsulosin) 0.4 mg Route: PO; j9 09:41 Follow up: Response: No adverse reaction; Pain is decreased j9 10:16 Drug: Magnesium Sulfate 1 grams Route: IVPB; Infused Over: 1 hrs; Site: right 9 antecubital; 11:11 Follow up: IV Status: Completed infusion; IV Intake: 100ml j9 11:52 Drug: morphine 4 mg {Note: RASS-0; 3/10 LLQ/back pain.} Route: IVP; Infused Over: 4 jg9 mins; Site: right antecubital; 12:54 Follow up: Response: No adverse reaction; Pain is decreased j9 Disposition Summary: 04/03/22 12:41 Discharge Ordered Location: Home rn Problem: new rn Symptoms: have improved rn Condition: Stable rn Diagnosis - Calculus of ureter rn - UTI/ Urinary tract infection, site not specified rn Followup: rn - With: Irwin Phillips MD - When: As needed - Reason: Recheck today's complaints, Re-evaluation by your physician Discharge Instructions: - Discharge Summary Sheet rn - Kidney Stones rn - Renal Colic rn - Urinary Tract Infection, Adult rn - Dietary Guidelines to Help Prevent Kidney Stones rn Forms: - Medication Reconciliation Form rn - Thank You Letter rn - Antibiotic furniture duster - Prescription Opioid Use rn - Work release form eb Prescriptions: - Flomax 0.4 mg Oral capsule - take 1 capsule by ORAL route once daily 1/2 hour following the same meal each rn day; 10 capsule; Refills: 0, Product Selection Permitted - Cipro 500 mg Oral Tablet - take 1 tablet by ORAL route every 12 hours for 7 days; 14 tablet; Refills: 0, rn Product Selection Permitted - ketorolac 10 mg Oral tablet - take 1 tablet by ORAL route every 6 hours As needed not to exceed 40 mg in rn 24hrs; 15 tablet; Refills: 0, Product Selection Permitted - ondansetron 4 mg Oral tablet,disintegrating - place 1 tablet by TRANSLINGUAL route every 8 hours As needed; 15 tablet; rn Refills: 0, Product Selection Permitted - Tramadol 50 mg Oral Tablet - take 1 tablet by ORAL route every 8 hours as needed; 12 tablet; Refills: 0, rn Product Selection Permitted Signatures: Dispatcher [employer] Jonatan Olguin MD MD rn Smirch, Shelby, RN RN ss Anuradha Hughes RN RN jg9
[2022-04-03 13:44] VITALS: BP 111/78; O2SAT 95
== END 2022-04-03 12:55 | disposition home or self-care (01) ==
LOC: ER 07:09
DX: N20.1 Calculus of ureter (principal); N39.0 Urinary tract infection, site not specified
CPT/HCPCS: 96365; 96367; 87088; 85025; 87086; 36415; 81025; 83690; 80053; 74177; 96375; 99284; Q9967; J3475; J2405; J0744; 81003; 81015